=== PATIENT | female | born 1940 | race Caucasian/White ===

== ENCOUNTER 2022-04-12 10:00 | Outpatient (RCR) | payer BC, SELFPAY ==
--- NOTE | 2021-12-06 09:52 | PT.OPDNX ---
PT [facility] Daily Note PT [facility] Outpatient Daily Note Start: 09/26/21 09:27 Freq: Status: Active Protocol: Document 12/04/21 10:04 ANDREW (Rec: 12/04/21 14:36 ANDREW [id number]) E-signed By Shanelle Key, PT PT OP Daily Progress Note Visit Information Note Type Daily Note Visit Number 3 Insurance Information Recert Due Date 12/07/21 Insurance Name Medicare B,Blue Cross/Blue Shield Medical Diagnosis Bladder prolapse Treating Diagnosis weakness incoordination urgency of urine Subjective Subjective Pt returns to PT after not being seen since August. She has been working on her HEP but does not feel like she is progressing. Is still unsure if she is doing her exercises correctly. Still has some urgency of urine - unsure how often she urinates. Pt did see MD due to her severe LBP and limited success with rehab for her lumbar spine. Diagnosed with significant deg changes and spurring. May need an injection. Precautions Treatment Precautions/Contraindications respiratory problems - recent nasal surgery, 3 weeks ago arthritis osteoporosis Objective Other/Pertinent Objective Continuation of care from old [facility] system ( ) into [facility] Expanse/current chart Patient Instructed in Risks/Benefits Yes Therapeutic Exercise Therapeutic Exercise Minutes (minutes) 25 Therapeutic Exercise: To Restore Kegels were reassessed to Functional Status facilitate PFM strength and endurance. Did use different multiple cues again today to try to facilitate a good PFM contraction. Used cueing of: hold back urine for a more complete and stronger contraction of her PFM. Added PT with Kegel to her HEP to facilitate co contractions . Did review her other back exs and modified prn to reduce risk of worsening her POP symptoms - hip ADD and bridging. Pt again voices she was able to better feel the contraction of her PFM. Did assign continued work on Kegels to hold 5 sec, and to do 5-10 reps, with a completion of 30 reps per day. Pt able to do in any position to aid in compliance of her HEP. Manual Therapy Techniques Manual Therapy Minutes (minutes) 25 Manual Therapy Techniques Assessment of PFM function - TPR along spams in all layers - gentle pressure. MET for R ant ilial rotation. Fascial release to B lumbar spine. Manual supine traction-- good reduction in her pain. Treatment Minutes Timed Code Treatment Minutes 50 Total Treatment Time 50 Billing Units Manual Therapy Units 2 Therapeutic Exercise Units 1 Assessment/Impression Assessment/Impression Pt returns to PT after not being seen X 6 weeks. Was again struggling with Kegels. Did reassess and worked on cueing of hold back urine to gain a more complete and stronger contraction. Strength of PFM is 3-/5. With other verbal and physical cues, pt was solely zachery her gluteals. Did has been struggling with more LBP and returned to MD to find out she has significant spurring and degenerative changes. Review of her HEP per pt request with cueing and modification as needed. Did brief MT to reduce pain with attempts to improve PFM function. Good reduction in her LBP and stiffness with MT today. Pt may be seen for 2-4 more sessions to modify and advance HEP as needed to improve function of her PFM. Plan of Care Physical Therapy Goals Short term goals to be achieved in 4 weeks 1. Able to report a reduction in her frequency of voiding to 1X every 2 hours, 3 out of 7 days. VARYING PROGRESSION- SOME DAYS ARE BETTER THAN OTHERS. 2. Will demonstrate an increase in PFM endurance from 2 sec hold to 8 sec hold X 10 reps for ability to reduce POP symptoms. IMPROVING - ENDURANCE OF CONTRACTIONS IS BETTER correction goals to be achieved in 12 weeks. 1. Independent with self-care program to reduce POP symptoms and improve bladder function. IMPROVING 2. Will report an improvement in her urgency symptoms as seen with ability to maintain a 2-3 hour voiding schedule, at least 4 out of 7 days. SLOWLY IMPROVING Daily Plan of Care Continue per POC,Change POC; See Comments Daily Plan of Care Comments 2-4 more session over the next 8 weeks. Certification I Certify That: Therapy Services Provided, Therapy Plan Established, Therapy Plan Reviewed Recertification Information Initial Certification Date 09/11/21 Recertification Start Date 12/04/21 Recertification Due Date 02/02/22 Reasons to Continue Skilled Therapy Pt has been seen for 3 visits and is still struggling with trying to fire PFM correctly. Did work on incorporating PFM with core routine to attempt to work on both her PFM and lumbar dysfunctions, and to make firing of PFM easier. She remains significantly weak and feel she would benefit from repetition, due to her cognition, to better solidify exs and home program. Rehabilitation Potential good Continued Plan of Care and Interventions Paln is to continue with 2-4 more sessions over the next 8 weeks to solidify her HEP to promote better PFM strength/ function and to reduce risk of worsening POP symptoms. Will use ther exs, NMRE, and MT to improve status. Provider Signature Shows Agreement With POC & Medical Necessity Physician Comment/Change Comment or Changes Physician NPI Number #
--- NOTE | 2022-01-15 15:58 | PT.OPDNX ---
PT [facility] Outpatient Daily Note PT [facility] Outpatient Daily Note Start: 09/26/21 09:27 Freq: Status: Active Protocol: Document 01/15/22 10:06 ANDREW (Rec: 01/15/22 11:35 ANDREW [id number]) E-signed By Shanelle Key, PT PT OP Daily Progress Note Visit Information Note Type Daily Note Visit Number 4 Insurance Information Recert Due Date 04/15/22 Insurance Name Medicare B,Blue Cross/Blue Shield Medical Diagnosis Bladder prolapse Treating Diagnosis weakness incoordination urgency of urine Subjective Subjective Pt has not been seen over the past 1.5 months. Reports her bladder has been doing pretty good/fair. Knows the exercises and feels like they are helpful. Continues to remain busy with activity and the exs. Does report having some abdominal pressure and pain. Has been there for years. Does question if this is putting pressure on her bladder/pelvic region. Is also having back pain. Wants to know what she can do to work on her abdominal and back pain. Precautions Treatment Precautions/Contraindications respiratory problems - recent nasal surgery, 3 weeks ago arthritis osteoporosis Objective Patient Instructed in Risks/Benefits Yes Manual Therapy Techniques Manual Therapy Minutes (minutes) 50 Manual Therapy Techniques Assessment of abdominal region - multiple abdominal surgeries through the years. Has midline incision and pfannenstiel incision. RAFAEL scale score 17 - thickness and pliability is significant limited along midline of the pfannenstiel scar as well as along the suprapubic fascia Severe tightness along the TLF and lumbar musculature. Scar mobilization along all scar. J stroking along lower abdominal quadrants, release to pubovesical region as well as midline abdominal region. Worked on prone lying along the lumbar region to improve mobility, reduce spasms, reduce fascial restrictions and to reduce tone in PFM. PAs along lumbar, grade 1-2. L SIJ mob. TPR along B gluteals with emphasis on R Gmed, TFL and piriformis due to TPs. Treatment Minutes Timed Code Treatment Minutes 50 Total Treatment Time 50 Billing Units Manual Therapy Units 3 Assessment/Impression Assessment/Impression Pt returns to PT after not being seen again X 6 weeks due to scheduling conflicts. Does feel like she is doing better with kegels and her bladder function is better. Still has tightness and pressure in lower abodminal region. Pt has had multiple surgeries and several abdominal scars with the pfannanstiel incision being the most adhered and restriction midline. Did work on scar and fascial mobility as well as along her lumbar spine into B gluteals to try to reduce overall tone and muscle guarding. Will reassess her status in approx 2 weeks and progress, Pt has HEP for her back already. Plan of Care Physical Therapy Goals Short term goals to be achieved in 4 weeks 1. Able to report a reduction in her frequency of voiding to 1X every 2 hours, 3 out of 7 days. IMPROVING 2. Will demonstrate an increase in PFM endurance from 2 sec hold to 8 sec hold X 10 reps for ability to reduce POP symptoms. IMPROVING oil heaterman goals to be achieved in 12 weeks. 1. Independent with self-care program to reduce POP symptoms and improve bladder function. IMPROVING 2. Will report an improvement in her urgency symptoms as seen with ability to maintain a 2-3 hour voiding schedule, at least 4 out of 7 days. IMPROVING Daily Plan of Care Continue per POC,Change POC; See Comments Daily Plan of Care Comments 2-4 more session over the next 8 weeks. Assess for umbilical hernia??? Recertification Information Initial Certification Date 09/11/21 Recertification Start Date 01/15/22 Recertification Due Date 04/15/22 Reasons to Continue Skilled Therapy Pt has been seen 1 time since her last recertification. She has been more compliant with her HEP but is noticing still issues with pressure in abdominal and pelvic region. Pt has a history of multiple abdominal surgeries with residual fascial tightness and weakness. Also has chronic issues with her lumbar region. Due to her limited attendance since her last PT session, would like to continue with 2-4 more sessions. Will work on reducing tightness sin the abdominal and pelvic region to reduce pressure on pelvis. Will advance HEP as able to address this but will need to be cautious due to her lumbar dysfunction. Rehabilitation Potential good Continued Plan of Care and Interventions 2-4 more session. Will continue with LE, HEYDI mcgill for symptom reduction. Advance her HEP to address her core dysfunction to continue to improve function of her PFM and bladder function. Provider Signature Shows Agreement With POC & Medical Necessity Physician Comment/Change Comment or Changes Physician NPI Number #
== END 2022-10-09 08:09 | disposition home or self-care (01) ==
PROVIDERS: PCP Family Medicine; Visit Provider Obstetrics & Gynecology
DX: N81.10 Cystocele, unspecified (principal); R39.15 Urgency of urination; R27.9 Unspecified lack of coordination; R53.1 Weakness; Z51.89 Encounter for other specified aftercare
CPT/HCPCS: 97110; 97140; 97535

== ENCOUNTER 2022-09-13 09:33 | Emergency (ER) | payer BC, SELFPAY ==
[2022-09-13 09:37] VITALS: BP 142/74; PULSE 98; RESP 18; TEMP 36.4; O2SAT 95; BMI 24.7
--- NOTE | 2022-09-13 10:49 | ED.GENADULT ---
HPI - General Adult General Time Seen by Provider: 10:49 Date Seen: 09/13/22 Chief complaint: Bug Bite Stated complaint: Sinus infection and wood tick Time Seen by Provider: 09/13/22 10:49 Source: patient, RN notes reviewed and old records reviewed Mode of arrival: ambulatory Limitations: no limitations History of Present Illness HPI narrative: 82-year-old female who comes in with complaint of a tick that she has not been able to remove as well as possible sinus infection. She notes nasal congestion and drainage for the last couple of days. Noted the tick today. Subjective fevers and achiness. Denies cough, chest pain, shortness of breath, nausea, vomiting, diarrhea. patient thinks she had a tick on her right buttock and is very worried about tick bites and Lyme disease as she has a sister who had Lyme disease. She is unsure how long this is been present. Related Data Home Medications Medication Instructions Recorded Confirmed levothyroxine 25 mcg tablet 25 mcg PO QAM 09/13/22 09/13/22 Previous Rx's Medication Instructions Recorded doxycycline hyclate 100 mg capsule 100 mg PO BID #14 caps 09/13/22 fluticasone propionate 50 1 spray intranasal BID #16 grams 09/13/22 mcg/actuation nasal spray,suspension (Flonase Allergy Relief) Allergies Allergy/AdvReac Type Severity Reaction Status Date / Time No Known Drug Allergies Allergy Verified 09/13/22 09:41 Exam Narrative: Exam Narrative: General: well nourished , NAD Head: Atraumatic and normocephalic ENT: External ears and external nose are normal Eyes: Conjunctiva clear, pupils are equal reactive, external ocular motions are intact Neck: Full spontaneous range of motion of the neck Lungs: No respiratory distress Musculoskeletal: No tenderness or deformity Neurologic: No gross focal neurologic deficits Skin: Right buttock to areas of erythema one measuring about 2 cm and one about 4 cm with no central clearing, no insects Psych: Mood and affect are appropriate Const: Vital Signs, click to edit/add: Vital Signs - 24 hr 09/13/22 09:37 Temperature 97.6 F Pulse Rate [Right Pulse Oximeter] 98 Respiratory Rate 18 Blood Pressure [Ri ght Upper Arm] 142/74 H Pulse Oximetry 95 Oxygen Delivery Me thod Room Air Course Course Hospital Course: Patient seen examined, prior records reviewed. Patient notes nasal congestion for the last several days with lots of drainage, has history of sinus problems and attributes this primarily to smoking. No fever no facial tenderness. Flonase prescribed. She is also concerned about a possible tick on her right buttock. On exam there is no tick. There are 2 areas of erythema and small amount of induration consistent with bug bites but no insects present at this time. Patient is very concerned about Lyme disease and so will be started on doxycycline. Stable for discharge otherwise. Vital Signs Vital signs: Initial Vital Signs Temperature 97.6 F 09/13/22 09:37 Temperature Source Temporal Artery Scan 09/13/22 09:37 Pulse Rate 98 09/13/22 09:37 Respiratory Rate 18 09/13/22 09:37 Blood Pressure 142/74 H 09/13/22 09:37 Blood Pressure Mean 96 09/13/22 09:37 Blood Pressure Position Sitting 09/13/22 09:37 Pulse Oximetry 95 09/13/22 09:37 Oxygen Delivery Method Room Air 09/13/22 09:37 Vital Signs Temperature 97.6 F 09/13/22 09:37 Pulse Rate 98 09/13/22 09:37 Respiratory Rate 18 09/13/22 09:37 Blood Pressure 142/74 H 09/13/22 09:37 Pulse Oximetry 95 09/13/22 09:37 Oxygen Delivery Method Room Air 09/13/22 09:37 Temperature 97.6 F 09/13/22 09:37 Pulse Rate 98 09/13/22 09:37 Respiratory Rate 18 09/13/22 09:37 Blood Pressure 142/74 H 09/13/22 09:37 Pulse Oximetry 95 09/13/22 09:37 Oxygen Delivery Method Room Air 09/13/22 09:37 Discharge Plan Discharge Clinical Impression: Allergic sinusitis, Sinus congestion, Insect bite Patient Disposition: Home, Self-Care Condition: Stable Instructions: Tick Bite (ED), How to Use Nasal [place] (ED) Additional Instructions: Take antibiotics and use nasal spray as prescribed. Follow-up with your primary care doctor as needed Activity Level: No Restrictions Discharge Diet: Regular Prescriptions: New fluticasone propionate [Flonase Allergy Relief] 50 mcg/actuation spray,suspension 1 spray intranasal BID Qty: 16 0RF Rx Instructions: administer into each nostril doxycycline hyclate 100 mg capsule 100 mg PO BID Qty: 14 0RF No Action levothyroxine 25 mcg tablet 25 mcg PO QAM Follow Up/Referrals: Ирина Carrion MD [Primary Care Provider] - Stand Alone Forms: Materia Info Instructions
--- NOTE | 2022-09-13 10:56 | ED.NURSE ---
Dr. Pina in room.
== END 2022-09-13 11:17 | disposition home or self-care (01) ==
LOC: ED 11:10
PROVIDERS: Emergency Provider Family Medicine; PCP Physician Assistant Medical
DX: J30.9 Allergic rhinitis, unspecified (principal); R09.81 Nasal congestion; S30.860A Insect bite (nonvenomous) of lower back and pelvis, initial encounter
CPT/HCPCS: 99282; 99283

== ENCOUNTER 2023-02-19 10:59 | Outpatient (RCR) | payer BC, SELFPAY | END 2023-06-19 23:59 | disposition home or self-care (01) | PROVIDERS: PCP Physician Assistant Medical; Visit Provider Physician Assistant Medical | DX: N81.10 Cystocele, unspecified (principal); M54.50 Low back pain, unspecified; G89.29 Other chronic pain; M50.30 Other cervical disc degeneration, unspecified cervical region; R27.8 Other lack of coordination; K59.00 Constipation, unspecified; L90.5 Scar conditions and fibrosis of skin; Z51.89 Encounter for other specified aftercare | CPT/HCPCS: 97110; 97162; 97535 ==

== ENCOUNTER 2023-07-15 08:08 | Outpatient (CLI) | payer BC, SELFPAY | END 2023-07-15 08:09 | disposition home or self-care (01) | LOC: INJ CL 08:09 | PROVIDERS: PCP Physician Assistant Medical; Visit Provider Family Medicine | DX: M54.16 Radiculopathy, lumbar region (principal); M51.36 Other intervertebral disc degeneration, lumbar region | CPT/HCPCS: 62323; J0702 ==

== ENCOUNTER 2024-06-20 09:47 | Outpatient (CLI) | payer BC, SELFPAY | END 2024-06-20 09:48 | disposition home or self-care (01) | LOC: AMB 06-22 13:26 | PROVIDERS: PCP Physician Assistant Medical; Visit Provider Family Medicine | DX: S09.93XA Unspecified injury of face, initial encounter (principal); W01.0XXA Fall on same level from slipping, tripping and stumbling without subsequent striking against object, initial encounter; Y92.512 Supermarket, store or market as the place of occurrence of the external cause | CPT/HCPCS: A0998 ==

== ENCOUNTER 2024-06-21 18:48 | Emergency (ER) | payer BC, SELFPAY ==
--- OUTSIDE RECORDS SUMMARY | 2024-06-21 18:50 | XMS_ITS | Clinical Summary ---
Author Organization [facility] Address [address] [place] [id number] Care Team Providers Care Remote Sensing Specialist Name Role Phone Sera Wilson Primary Care Provider Allergies Active Allergy Reactions Criticality Noted Date Comments Codeine specific reaction not listed Epinephrine specific reaction not listed Pseudoephedrine-Guaifen esin Dizziness 04/17/2007 Iodine Dizziness 01/05/2007 Morphine Other - Describe In Comment Field 08/11/2018 Per patient report, hard to wake patient up Procaine Dizziness Low specific reaction not listed Medications fluticasone (50 mcg per actuation) nasal solution (FLONASE)Indicatio ns:Recurrent sinusitis SPRAY ONE SPRAY INTO EACH NOSTRIL TWICE DAILY 3 Bottle 3 1 Active estradioL (ESTRACE) 0.01% (0.1 mg/g) vaginal creamIndications:V aginal atrophy Insert 0.5 g into the vagina at bedtime. Insert 0.5 mg vaginally one or two nights per week (M,Th) 42.5 g 3 2 Active montelukast (SINGULAIR) 10 mg tabletIndications: Allergy, sequela Take 1 Tablet (10 mg) by mouth at bedtime. 90 Tablet 3 3 Active levothyroxine (SYNTHROID) 25 mcg tabletIndications: Hypothyroidism, unspecified type TAKE ONE TABLET BY MOUTH ONE TIME DAILY BEFORE BREAKFAST 90 Tablet 2 3 Active loratadine (CLARITIN) 10 mg tabletIndications: Seasonal allergic rhinitis due to pollen TAKE ONE TABLET BY MOUTH ONE TIME DAILY 90 Tablet 2 3 Active docusate (COLACE) 100 mg capsuleIndications :Chronic constipation TAKE ONE CAPSULE BY MOUTH TWICE DAILY NEEDED for constipation. 180 Capsule 4 Active hydrocortisone 1% (HYTONE) 1 % lotionIndications: Dermatitis Apply topically to affected area(s) two times daily. 118 mL 1 4 Active cholecalciferol (VITAMIN D3) 1,000 unit capsuleIndications :Osteoporosis, unspecified osteoporosis type, unspecified pathological fracture presence TAKE ONE CAPSULE (1000) BY MOUTH TWICE DAILY 180 Capsule 2 4 Active tiZANidine (ZANAFLEX) 4 mg tabletIndications: DDD (degenerative disc disease), cervical,Chronic low back pain, unspecified back pain laterality, unspecified whether sciatica present,Muscle spasm Take 1 Tablet (4 mg) by mouth every 6 hours if needed for Muscle Spasm. 30 Tablet 4 Active triamcinolone (ARISTOCORT; KENALOG) 0.1 % creamIndications:D ermatitis Apply topically to affected area(s) three times daily. 80 g 4 Active atorvastatin (LIPITOR) 20 mg tabletIndications: Hyperlipidemia, unspecified hyperlipidemia type Take 1 Tablet (20 mg) by mouth at bedtime. 90 Tablet 3 4 Active ibuprofen (ADVIL; MOTRIN) 600 mg tabletIndications: Cervical facet joint syndrome TAKE ONE TABLET BY MOUTH EVERY SIX HOURS NEEDED. DO NOT EXCEED 3200MG OF IBUPROFEN IN 24 HOURS FROM ANY SOURSE 360 Tablet 4 Active Active Problems Problem Noted Date Diagnosed Date OAB (overactive bladder) 10/21/2019 Urinary incontinence 10/21/2019 Vaginal atrophy 10/21/2019 Pelvic organ prolapse quantification stage 2 cys tocele 10/21/2019 Bilateral kidney stones 07/10/2015 Urinary frequency 07/10/2015 Cervical facet joint syndrome 07/26/2013 DDD (degenerative disc disease), cervical 2013 Sensorineural hearing loss, bilateral 02/03/2013 Tinnitus of both ears 02/03/2013 Recurrent sinusitis 01/29/2013 Hiatal hernia 01/29/2013 IBS (irritable bowel syndrome) 11/16/2012 Hyperlipidemia LDL goal <130 04/04/2011 Headache(784.0) 02/12/2011 Osteoarthritis cervical spine 09/14/2009 Unspecified hypothyroidism 04/20/2009 Vitamin D deficiency 04/20/2009 Osteoporosis, unspecified 06/11/2007 Other abnormalities in shape or position of gravid uterus and of neighboring structures, unspecified as to episode of care Other prolapse of vaginal wa lls without mention of uterine prolapse Resolved Problems Problem Noted Date Diagnosed Date Resolved Date Dyspareunia 12/21/2009 04/27/2014 Neck pain 07/20/2009 11/16/2012 Unspecified sinusitis (chronic) 04/10/2009 03/15/2014 Unspecified sinusitis (chronic) 02/24/2009 04/10/2009 Rectocele 10/21/2019 Closed fracture of shaft of tibia 02/11/2011 Overview (06/20/2006): Tibial Plateau Fx Depressive disorder, not elsewhere classified 04/27/2014 Encounters Date Type Department Care Team Description 06/21/2024 2:45 PM CDT Ancillary Procedure [facility] [address] [place] [address] Arrived 06/21/2024 Travel 06/21/2024 Nurse Triage [facility] [address] [place] [address] Sera Wilson PA Questions (MRI); Head Injury 06/10/2024 10:00 AM CDT Ancillary Procedure [facility] [address] [place] [address] 06/10/2024 9:30 AM CDT Office Visit [address] [address] Sera Wilson PA Shoulder Pain/problem (L shoulder pain x 6-7 weeks, unsure how she inured it) 06/10/2024 Travel 06/08/2024 Telephone [facility] [address] [place] [address] Luan Watkins MD Questions 05/28/2024 Telephone [facility] [address] [place] [address] Luan Watkins MD Questions 05/28/2024 Telephone [facility] [address] [place] [address] Sera Wilson PA Referral (physical therapy) from Last 3 Months Immunizations Immunization Administration Dates Next Due DT (Age < 7 years) 07/23/1986 DTaP 07/23/1986 Family History Medical History Relation Name Comments Asthma Child one son, one da ughter Other Father dementia Diabetes Maternal Aunt Cancer-breast Mother Diabetes Other aunts x2 Cancer-ovarian No Family History Relation Name Status Comments Child Father Maternal Aunt Mother Other Social History Tobacco Use Types Packs/Day Years Used Date Smoking Tobacco: Former Cigarettes Q uit: 03/31/2005 Smokeless Tobacco: Never Tobacco Cessation:Counseling Given: Yes Alcohol Use Standard Drinks/Week Comments No 0 (1 standard drink = 0.6 oz pur e alcohol) 1-2 bottles of beer per year PHQ-2 Answer Date Recorded PHQ-2 Score 0 08/05/2018 Social Connections Answer Date Recorded Do you often feel lonely or isolated from those around you? 0 03/17/2024 Financial Resource Strain Answer Date R ecorded Difficulty of Paying Living Expenses 3 03/17/2024 Difficulty of Paying Living Expenses Not on file 03/17/2024 Food Insecurity Answer Date Recorded Do you worry your food will run out before you are able to buy more? 1 03/17/2024 Transportation Needs Answer Date Record ed Does lack of transportation keep you from medica l appointments? 1 03/17/2024 Does lack of transportation keep you from work, meetings or getting things that you need? 1 03/17/2024 Housing Stability Answer Date Recorded What is your housing situation today? 1 03/17/2024 Utilities Answer Date Recorded Do you have trouble paying f or utilities (for example, heat, electricity, water, phone)? 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 Gender Identity Not on file Sexual Orientation Not on file Occupation Industry Job Start Date Job End Date retired Not on file Not on file Not on file Obstetrics History Para Term AB IAB SAB Ectopic Multiple Livin g Live Births 5 5 5 3 Date Outcome GA Total Labor Labor/2nd/3rd Weight Sex Type Anes PTL Chanel A1 A5 Name Clin Term Term Term Term Term Last Filed Vital Signs Vital Sign Reading Time Taken Comments Blood Pressure 131/76 06/10/2024 9:34 AM CDT Pulse 109 06/10/2024 9:34 AM CDT Temperature 36.6 C (97.8 F) 03/17/2024 2:26 PM ASSEMBLY MECHANIC Respiratory Rate 13 01/16/2021 10:13 AM CDT Oxygen Saturation 96% 11/12/2023 1:08 PM CDT Inhaled Oxygen Concentration - - Weight 63.5 kg (140 lb) 06/10/2024 9:34 AM CDT Height 155.7 cm (5' 1.3) 06/16/2023 11:23 AM CD T Body Mass Index 26.2 06/16/2023 11:23 AM CDT Plan of Treatment Upcoming Encounters Date Type Department Care Team (Late st Contact Info) Description 06/22/2024 10:20 AM CDT Office Visit [facility] [address] [place] [address] Luan Watkins MD [address] [place] [address] 08/04/2024 9:40 AM CDT Office Visit [facility] [address] [place] [address] Luan Watkins MD [address] [place] [address] Health Maintenance Due Date Last Done Comments Pneumococcal series for age 50+ (1 of 1 - PCV) 1992 Zoster (shingles) series for age 50+ (1 of 2) 1992 Medicare Wellness for age 65+ 04/27/2016, 04/27/2014, 04/16/2013, Additional history exists RSV vaccine for adults or (1 - 1-dose 75+ series) 2017 Depression screening for age 12+ 08/06/2019 08/05/2018, 06/26/2016, 04/27/2015, Additional history exists Tetanus booster 02/11/2021 02/11/2011, 11/30 (Declined) COVID-19 vaccine series ( season) 2023 Influenza Vaccine (#1) 2023 BMI (ht and wt on same day) for age 18+ 06/15/2024 06/16/2023, 10/08/2022, 08/15/2021, Additional history exists Tdap Completed 1986 (Comp leted outside of [facility]) DEXA/DXA scan for age 65+ Completed 2013, 01/02/2010, 05/19/2007 Procedures Procedure Name Priority Date/Time Associated Diagnosis Comments XR SHOULDER 3 VIEWS LEFT Routine 06/10/2024 10:10 AM CDT Acute pain of left shoulder XR DXA BONE DENSITY 2 SITES AXIAL Routine 08/05/2013 10:36 AM CDT OSTEOPOROSIS from Last 3 Months or Most Recently Relevant to Health Maintenance Results * XR SHOULDER 3 VIEWS LEFT (06/10/2024 10:10 AM CDT) Anatomical Region Laterality Modality SHOULDERS, SHOULDER L Computed R adiography 06/10/2024 10:2 9 AM CDT Narrative 06/10/2024 10:29 AM CDT For Patients: As a result of the Cures Act, medical imaging exams and procedure reports are released immediately into your electronic medical record. You may view this report before your referring provider. If you have questions, please contact your health care provider. Indication: Left shoulder pain. Technique: Left shoulder 3 views. Comparison: None. Findings: Joint space narrowing and spurring at the acromioclavicular joint. Spurring at the inferior glenohumeral joint. Osteopenia. No fracture. Vascular calcifications. Hiatal hernia appears to be present. Impression: Degenerative joint disease left shoulder, moderate. Dictated by Trevor Ramsey MD @ 06/10/2024 10:29:08 AM (Electronically Signed) Procedure Note Trevor Ramsey MD - 06/10/2024 For Patients: As a result of the Cures Act, medical imagingexams and procedure reports are released immediately into your electronicmedical record. You may view this report before your referring provider.If you have questions, please contact your health care provider. Indication: Left shoulder pain. Technique: Left shoulder 3 views. Comparison: None. Findings: Joint space narrowing and spurring at the acromioclavicular joint.Spurring at the inferior glenohumeral joint. Osteopenia. No fracture.Vascular calcifications. Hiatal hernia appears to be present. Impression: Degenerative joint disease left shoulder, moderate. Dictated by Trevor Ramsey MD @ 06/10/2024 10:29:08 AM (Electronically Signed) [facility] Final R esult * (ABNORMAL) XR DXA BONE DENSITY 2 SITES (08/05/2013 10:36 AM CDT) Anatomical Region Laterality Modality Spine, HIPS, HIPL, HIPR Other Narrative 08/09/2013 4:42 PM CDT Please see scanned document for results of this study. Procedure Note Sera Wilson PA - 08/09/2013 Please see scanned document for results of this study. 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
[2024-06-21 18:51] VITALS: BP 171/75; PULSE 81; RESP 16; TEMP 36.4; O2SAT 93; BMI 25.1
--- NOTE | 2024-06-21 19:06 | CRLHL7_ITS ---
For Patients: As a result of the Century Cures Act, medical imaging exams and procedure reports are released immediately into your electronic medical record. You may view this report before your referring provider. If you have questions, please contact your health care provider. INDICATION: Fell and hit head on metal band. Bleeding around the right eye and forehead. COMPARISON: 08/01/[address] TECHNIQUE: CT of the head without contrast. FINDINGS: Brain, ventricles, and extra-axial spaces: No acute intracranial hemorrhage. Pretty-white differentiation is grossly preserved. Mild hypoattenuating changes in the white matter which are nonspecific, but commonly attributable to chronic microangiopathic change. Mild parenchymal volume loss with commensurate size of the ventricles and sulci. There are intracranial vascular calcifications. There is a cavum septum pellucidum et vergae. Bones: No acute osseous findings. Visualized paranasal sinuses are clear. Visualized mastoid air cells are clear. Mild degenerative change of the left temporomandibular joint. Additional findings: Mild soft tissue swelling at the right frontal scalp. IMPRESSION: 1. No acute intracranial noncontrast CT findings. 2. Mild soft tissue swelling at the right frontal scalp. Please note that all CT scans at this facility use dose modulation, iterative reconstruction, and/or weight-based dosing when appropriate to reduce radiation dose to as low as reasonably achievable. Dictated by Rizwan Nobles MD @ 06/21/2024 7:43:59 PM (Electronically Signed)
--- OUTSIDE RECORDS SUMMARY | 2024-06-21 19:17 | XMS_ITS | Clinical Summary ---
Author Organization [facility] Address [address] [place] [address] Care Team Providers Care Park Aide Name Role Phone Sera Wilson Primary Care [...] Description 06/21/2024 2:45 PM CDT Ancillary Procedure [facility] [address] [place] [address] Arrived 06/21/2024 Travel 06/21/2024 Nurse Triage [facility] [address] [place] [address] Sera Wilson PA Questions (MRI); Head Injury 06/10/2024 10:00 AM CDT Ancillary Procedure [facility] [address] [place] [address] 06/10/2024 9:30 AM CDT Office Visit [address] [address] Sera Wilson PA Shoulder Pain/problem (L shoulder pain x 6-7 weeks, unsure how she inured it) 06/10/2024 Travel 06/08/2024 Telephone [facility] [address] [place] [address] Luan Watkins MD Questions 05/28/2024 Telephone [facility] [address] [place] [address] Luan Watkins MD Questions 05/28/2024 Telephone [facility] [address] [place] [address] Sera Wilson PA Referral (physical therapy) from [...] on file 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 [address] [place] [address] Luan Watkins MD [address] [place] [address] 08/04/2024 9:40 AM CDT Office Visit [facility] [address] [place] [address] Luan Watkins MD [address] [place] [address] Health Maintenance Due Date Last Done Comments [...] Maintenance Insurance MEDICARE PART B HB ONLY [facility] Member Subscriber Plan / Payer (Ef fective 2023-Present) Name:June Madrigal Relation to Subscriber:Self Name:June Madrigal Payer ID:[id number] (NAIC) Group ID:[id number] Type:Not on file Address: [place]: [id number] [place] [address] Advance Directives Documents on File Type Date Recorded 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
[2024-06-21 19:30] VITALS: BP 159/86; PULSE 70; RESP 16; O2SAT 92
--- NOTE | 2024-06-21 19:38 | ED_ITS ---
HPI - Head Injury General Date Seen: 06/21/24 Chief complaint: Head Injury/Pain Stated complaint: Fell, hit head Time Seen by Provider: 06/21/24 18:49 Source: patient, family, RN notes reviewed and old records reviewed Mode of arrival: ambulatory Limitations: no limitations History of Present Illness HPI Narrative: Patient is a very nice 84-year-old female who presents here ambulatory with her daughter, for evaluation of a head injury that occurred yesterday, she fell hitting her head against a metal bench, when her feet become in tangled around the bench. She was no loss of consciousness, she had on her right frontal region. She is able to get up and walk, but she noted a lot of swelling today, and feels more which she describes is spacey. She is able to walk normally, there has been no nausea vomiting, no diplopia double vision, she denies any neck pain at all. She does have a pre-existing problem with her left shoulder pain. And she recent just today had an MRI of the shoulder. Denies any numbness tingling or weakness, and denies any other injuries such as to her neck back her extremities. Did take some Tylenol for the discomfort, as she normally takes ibuprofen but was told for the MRI she should stop this. Complaint: head injury Onset (ago): day(s) Mechanism of Injury: fall Place: home Loss of Consciousness: no Location of injury: frontal Severity: mild Associated symptoms: denies other symptoms Related Data Home Medications ?Medication ?Instructions ?Recorded ?Confirmed levothyroxine 25 mcg tablet 25 mcg PO QAM 09/13/22 06/21/24 Previous Rx's ?Medication ?Instructions ?Recorded fluticasone propionate 50 1 spray intranasal BID #16 grams 09/13/22 mcg/actuation nasal spray,suspension (Flonase Allergy Relief) Allergies Allergy/AdvReac Type Severity Reaction Status Date / Time No Known Drug Allergies Allergy Verified 04/14/24 09:07 Review of Systems Status of ROS: Reports: 10 or more systems reviewed and unremarkable except as noted in History and below PFSH PFS Social History Smoking Status: Unknown if ever smoked Exam Narrative: Exam Narrative: On examination in room 2 she is in no apparent distress she is pleasant and alert, speaking to me normally lot of bruising is noted, with ecchymosis around her right eye, and over her right forehead, with an obvious small hematoma noted. Alert and oriented x3, GCS is 15/15 she speaking to me normally. Cranial nerves 3-12 are normal, extraocular muscles are normal fundi appear normal pupils equal round reactive to light negative pereyra sign, no hemotympanum, her neck shows range of motion from [address] up to 18 cm, side flexion is 20? and rotation to the right is 65 into the left reeves come to 16 she tells me this is normal for her. 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 No tenderness to palpation over her thoracic region or lumbar region chest is good air entry bilaterally with no wheezing crackles noted heart sounds are normal her pelvis is normal stable to rocking, Const: Vital Signs, click to edit/add: Vital Signs - 24 hr 06/21/24 18:51 06/21/24 19:30 Temperature 97.6 F Pulse Rate [Pulse Oximeter] 81 70 Respiratory Rate 16 16 Blood Pressure [Ri ght Upper Arm] 171/75 H 159/86 H Pulse Oximetry 93 92 Oxygen Delivery Me thod Room Air Room Air Documenting provider has reviewed patient's vital signs: yes Course Course ED Course: Patient is continued to do well I reviewed with her her CT scan report, does not show any acute findings, she was reassured by this, we went over the cause of the concussion, treatment, and natural course. Vital Signs Vital signs: Initial Vital Signs Temperature 97.6 F 06/21/24 18:51 Temperature Source Temporal Artery Scan 06/21/24 18:51 Pulse Rate 81 06/21/24 18:51 Respiratory Rate 16 06/21/24 18:51 Blood Pressure 171/75 H 06/21/24 18:51 Blood Pressure Mean 107 H 06/21/24 18:51 Blood Pressure Position Sitting 06/21/24 18:51 Pulse Oximetry 93 06/21/24 18:51 Oxygen Delivery Method Room Air 06/21/24 18:51 Vital Signs Temperature 97.6 F 06/21/24 18:51 Pulse Rate 81 06/21/24 18:51 Respiratory Rate 16 06/21/24 18:51 Blood Pressure 171/75 H 06/21/24 18:51 Pulse Oximetry 93 06/21/24 18:51 Oxygen Delivery Method Room Air 06/21/24 18:51 Temperature 97.6 F 06/21/24 18:51 Pulse Rate 70 06/21/24 19:30 Respiratory Rate 16 06/21/24 19:30 Blood Pressure 159/86 H 06/21/24 19:30 Pulse Oximetry 92 06/21/24 19:30 Oxygen Delivery Method Room Air 06/21/24 19:30 MDM - Head Injury MDM Narrative Medical decision making narrative: Life-threatening differential diagnosis is considered include: Subarachnoid hemorrhage, subdural hemorrhage, epidural hemorrhage. Other differential diagnosis considered include concussion, closed head injury, or neck fracture. Differential Diagnosis Differential diagnosis: Likely concussion without loss of consciousness, epidural hematoma, closed head injury, subarachnoid hematoma, postconcussion syndrome, subdural hematoma and concussion with loss of consciousness Medical Records Attestation: I reviewed the patient's medical records. Imaging Data CT scan - head: Attestation: I have reviewed the pertinent imaging results. My impression: Negative head CT Radiologist's impression: [place] [address] Diagnostic Imaging Report Patient: June Madrigal MR#: [id number] : 1940 Acct:[id number] Loc: ED Service Date: 06/21/[address]: Ordering Physician: Kayode Motley M.D. Date of Service: 06/21/24 Procedure(s): CT head/brain wo con Accession Number(s): [id number] cc: Sera Wilson PA-C; Kayode Motley M.D.~ For Patients: As a result of the Cures Act, medical imaging exams and procedure reports are released immediately into your electronic medical record. You may view this report before your referring provider. If you have questions, please contact your health care provider. INDICATION: Fell and hit head on metal band. Bleeding around the right eye and forehead. COMPARISON: 08/01/[address] TECHNIQUE: CT of the head without contrast. FINDINGS: Brain, ventricles, and extra-axial spaces: No acute intracranial hemorrhage. Pretty-white differentiation is grossly preserved. Mild hypoattenuating changes in the white matter which are nonspecific, but commonly attributable to chronic microangiopathic change. Mild parenchymal volume loss with commensurate size of the ventricles and sulci. There are intracranial vascular calcifications. There is a cavum septum pellucidum et vergae. Bones: No acute osseous findings. Visualized paranasal sinuses are clear. Visualized mastoid air cells are clear. Mild degenerative change of the left temporomandibular joint. Additional findings: Mild soft tissue swelling at the right frontal scalp. IMPRESSION: 1. No acute intracranial noncontrast CT findings. 2. Mild soft tissue swelling at the right frontal scalp. Please note that all CT scans at this facility use dose modulation, iterative reconstruction, and/or weight-based dosing when appropriate to reduce radiation dose to as low as reasonably achievable. Dictated by Rizwan Nobles MD @ 06/21/2024 7:43:59 PM (Electronically Signed) Discharge Plan Discharge Clinical Impression: Closed head injury, Concussion without loss of consciousness Patient Disposition: Home w/ Parent or Adult Condition: Stable Instructions: Concussion (ED), Head Injury (ED), Cognitive Disorders after Traumatic Brain Injury (ED), Post Concussion Syndrome (ED) Additional Instructions: Home, rest, Tylenol 1 g every 8 hours, this will help the headache, avoidance of using TV, phone, lots of sleep is recommended. Really low chance of a complications secondary to something that went on yesterday and you have a normal CT of your head.. But if he have increasing headaches, nausea vomiting, or other neurologic symptoms such as inability to walk, speaking or other issues then please come back to be seen. Slowly graded activity would be increasing once her symptoms jose. Otherwise follow-up with primary care strongly s uggested. Activity Level: Light activity Prescriptions: No Action levothyroxine 25 mcg tablet 25 mcg PO QAM fluticasone propionate [Flonase Allergy Relief] 50 mcg/actuation spray,suspension 1 spray intranasal BID Qty: 16 0RF Rx Instructions: administer into each nostril Follow Up/Referrals: Sera Wilson PA-C [Primary Care Provider] - Stand Alone Forms: [facility] Info Instructions
== END 2024-06-21 20:45 | disposition home or self-care (01) ==
PROVIDERS: Emergency Provider Family Medicine; PCP Physician Assistant Medical
DX: S06.0X0A Concussion without loss of consciousness, initial encounter (principal); W01.198A Fall on same level from slipping, tripping and stumbling with subsequent striking against other object, initial encounter
CPT/HCPCS: 70450; 99283; 99284

== ENCOUNTER 2024-06-22 09:48 | Outpatient (CLI) | payer BC, SELFPAY | END 2024-06-22 09:49 | disposition home or self-care (01) | PROVIDERS: PCP Physician Assistant Medical; Visit Provider Family Medicine | DX: M54.16 Radiculopathy, lumbar region (principal); M51.369 Other intervertebral disc degeneration, lumbar region without mention of lumbar back pain or lower extremity pain | CPT/HCPCS: 62323; J0702; Q9966 ==